=== PATIENT | male | born 1980 | race Two or more races ===

== ENCOUNTER 2016-08-05 10:54 | Emergency (ER) | payer SELFPAY ==
[~2016-08-05] VITALS: Ht 172.7 cm; Wt 80.0 kg
[2016-08-05] MEDS ORDERED: SODIUM CHLORIDE 0.9% 1,000ML IVBOLUS ONE (11:30)
[2016-08-05] MEDS ORDERED: SODIUM CHLORIDE FLUSH 10ML SYR IVF ONE (11:30)
[2016-08-05 12:29] LABS: BLOOD UREA NITROGEN 14 mg/dL (7-18)
[2016-08-05 13:34] VITALS: BP 115/70
== END 2016-08-05 13:36 | disposition home or self-care (01) ==
LOC: ED 12:03
DX: E86.0 Dehydration (principal); Z59.0 Homelessness
CPT/HCPCS: 36415; 80048; 82040; 85025; 93005; 96360; 96361; 99285; J7030

== ENCOUNTER 2016-09-08 21:14 | Emergency (ER) | payer SELFPAY ==
[~2016-09-08] VITALS: Ht 172.7 cm; Wt 79.8 kg
[2016-09-08] MEDS ORDERED: MAALOX/HYOSCYAMINE/LIDOCAINE 45 ML BOTTLE PO ONE (21:30)
[2016-09-08] MEDS: PLEASE ENTER HEIGHT AND WEIGHT MC SCH ×2 (21:30→22:44)
[2016-09-08] MEDS ORDERED: ONDANSETRON 2MG/ML, 2ML IVPush ONE (21:30)
[2016-09-08] MEDS ORDERED: FAMOTIDINE 20 MG/2 ML IVP ONE (21:30)
[2016-09-08] MEDS ORDERED: SODIUM CHLORIDE 0.9% 1,000ML IVBOLUS ONE ×2 (21:30→23:00)
[2016-09-08] MEDS ORDERED: SODIUM CHLORIDE FLUSH 10ML SYR IVF ONE (21:30)
[2016-09-08] MEDS ORDERED: MAALOX/HYOSCYAMINE/LIDOCAINE 45 ML BOTTLE ONE (21:50)
[2016-09-08] MEDS ORDERED: FAMOTIDINE 20 MG/2 ML ONE (21:50)
[2016-09-08] MEDS ORDERED: ONDANSETRON 2MG/ML, 2ML ONE (21:50)
[2016-09-08 22:28] LABS: BLOOD UREA NITROGEN 11 mg/dL (7-18)
[2016-09-08 22:32] LABS: ASPARTATE AMINO TRANSFERASE 25 U/L (15-37)
[2016-09-08 23:58] VITALS: BP 153/95
== END 2016-09-09 00:01 | disposition home or self-care (01) ==
LOC: ED 23:55
DX: R11.2 Nausea with vomiting, unspecified (principal); R19.7 Diarrhea, unspecified
CPT/HCPCS: 36415; 74020; 80053; 80307; 83690; 85025; 96361; 96374; 96375; 99285; J2405; J7030; S0028